=== PATIENT | male | born 1935 | race Caucasian/White ===

== ENCOUNTER 2021-08-28 18:23 | Inpatient (IN) ==
[2021-08-29] MEDS ORDERED: Ipratropium 1 PUFF INHALER IH PRN (13:13)
[2021-08-29] MEDS: *HR* OxyCODONE/APAP 5/325 TABLET PO PRN (13:57)
[2021-08-29] MEDS ORDERED: Gabapentin 300 MG CAPSULE PO SCH (15:00)
[2021-08-29] MEDS: traZODone 50 MG TABLET PO SCH (19:51)
[2021-08-29] MEDS: Gabapentin 300 MG CAPSULE PO SCH (19:51)
[2021-08-29] MEDS: Doxycycline 100 MG CAPSULE PO SCH (19:51)
[2021-08-29] MEDS: Budesonide/Formoterol 160/4.5 1 PUFF INH IH SCH (20:37)
[2021-08-30] MEDS: *HR* OxyCODONE/APAP 5/325 TABLET PO PRN ×3 (00:10→16:57)
[2021-08-30 05:56] LABS: Basophils # 0.1 K/mcL (0.0-0.2); Basophils % 0.8 %; Eosinophils # 0.6 K/mcL (0.0-0.6); Eosinophils % 4.4 %; Hematocrit 31.4 % (37.5-50.1); Hemoglobin 10.7 g/dL (12.9-16.9); Immature Granulocytes % 5.3 % (0-4); Lymphocytes # 1.7 K/mcL (0.6-4.6); Lymphocytes % 12.8 %; Mean Corpuscular HGB Conc 34.1 g/dL (31.6-35.5); Mean Corpuscular Hemoglobin 31.5 pg (28.0-33.3); Mean Corpuscular Volume 92.4 fL (83.0-100.0); Mean Platelet Volume 10.9 fL (9.4-12.4); Monocytes # 1.6 K/mcL (0.0-1.3); Monocytes % 11.9 %; Neutrophils # 8.7 K/mcL (1.6-8.9); Platelet Count 206 K/mcL (140-400); Segmented Neutrophils % 64.8 %; White Blood Count 13.4 K/mcL (4.3-11.1)
[2021-08-30] MEDS: *HR* Enoxaparin 40 MG/0.4 ML SYRINGE SQ SCH (06:16)
[2021-08-30] MEDS: Budesonide/Formoterol 160/4.5 1 PUFF INH IH SCH ×2 (06:34→20:06)
[2021-08-30 06:53] LABS: BUN/Creatinine Ratio 21 (6-26); Blood Urea Nitrogen 24 mg/dL (8-23); Calcium 8.2 mg/dL (8.6-10.3); Carbon Dioxide 27 mEq/L (23-29); Chloride 104 mEq/L (98-107); Glucose 99 mg/dL (70-105); Osmolality,Calculated 286 (280-300); Potassium 4.2 mEq/L (3.5-5.1); Sodium 136 mEq/L (136-145); eGFR For African Americans > 60 (> 60); eGFR For Non-African Americans 59 (> 60)
[2021-08-30] MEDS: Nicotine 14 MG PATCH.TD24 TD SCH (08:10)
[2021-08-30] MEDS: amLODIPine 5 MG TABLET PO SCH (08:11)
[2021-08-30] MEDS: predniSONE 20 MG TABLET PO SCH (08:11)
[2021-08-30] MEDS: Gabapentin 300 MG CAPSULE PO SCH ×3 (08:12→20:03)
[2021-08-30] MEDS: Furosemide 40 MG TABLET PO SCH (08:12)
[2021-08-30] MEDS: Doxycycline 100 MG CAPSULE PO SCH ×2 (08:12→20:03)
[2021-08-30] MEDS: Aspirin Enteric Coated 81 MG Tablet PO SCH (08:13)
[2021-08-30] MEDS: Sennosides/Docusate Sodium TABLET PO PRN (20:03)
[2021-08-30] MEDS: traZODone 50 MG TABLET PO SCH (20:03)
[2021-08-31] MEDS: *HR* OxyCODONE/APAP 5/325 TABLET PO PRN ×3 (04:36→22:19)
[2021-08-31] MEDS: *HR* Enoxaparin 40 MG/0.4 ML SYRINGE SQ SCH (04:37)
[2021-08-31] MEDS: Budesonide/Formoterol 160/4.5 1 PUFF INH IH SCH ×2 (08:00→21:33)
[2021-08-31] MEDS: Nicotine 14 MG PATCH.TD24 TD SCH (09:13)
[2021-08-31] MEDS: Aspirin Enteric Coated 81 MG Tablet PO SCH (09:14)
[2021-08-31] MEDS: Doxycycline 100 MG CAPSULE PO SCH ×2 (09:15→20:16)
[2021-08-31] MEDS: Furosemide 40 MG TABLET PO SCH (09:15)
[2021-08-31] MEDS: predniSONE 20 MG TABLET PO SCH (09:15)
[2021-08-31] MEDS: amLODIPine 5 MG TABLET PO SCH (09:15)
[2021-08-31] MEDS: Gabapentin 300 MG CAPSULE PO SCH ×3 (09:15→20:16)
[2021-08-31] MEDS: traZODone 50 MG TABLET PO SCH (20:16)
[2021-09-01] MEDS: *HR* Enoxaparin 40 MG/0.4 ML SYRINGE SQ SCH (05:34)
[2021-09-01] MEDS: Benzonatate 100 MG CAPSULE PO PRN (05:41)
[2021-09-01] MEDS: Sennosides/Docusate Sodium TABLET PO PRN ×2 (05:41→20:13)
[2021-09-01 06:07] LABS: Hematocrit 30.8 % (37.5-50.1); Hemoglobin 10.3 g/dL (12.9-16.9); Mean Corpuscular HGB Conc 33.4 g/dL (31.6-35.5); Mean Corpuscular Hemoglobin 30.8 pg (28.0-33.3); Mean Corpuscular Volume 92.2 fL (83.0-100.0); Mean Platelet Volume 11.5 fL (9.4-12.4); Platelet Count 249 K/mcL (140-400); Red Blood Count 3.34 M/mcL (4.19-5.50); Red Cell Distribution Width 13.1 % (11.5-14.5); White Blood Count 16.2 K/mcL (4.3-11.1)
[2021-09-01 06:23] LABS: Alanine Aminotransferase 17 Units/L (7-52); Albumin 2.9 g/dL (3.5-5.7); Albumin/Globulin Ratio 1.1 (1.1-2.2); Alkaline Phosphatase 63 Units/L (34-104); Aspartate Amino Transferase 9 Units/L (13-39); BUN/Creatinine Ratio 25 (6-26); Bilirubin,Total 0.3 mg/dL (0.3-1.0); Blood Urea Nitrogen 29 mg/dL (8-23); Calcium 8.2 mg/dL (8.6-10.3); Carbon Dioxide 27 mEq/L (23-29); Chloride 104 mEq/L (98-107); Globulin 2.6 g/dL (2.4-3.5); Glucose 99 mg/dL (70-105); Magnesium 2.2 mg/dL (1.6-2.6); Osmolality,Calculated 290 (280-300); Sodium 137 mEq/L (136-145); Total Protein 5.5 g/dL (6.4-8.9); eGFR For African Americans > 60 (> 60); eGFR For Non-African Americans 60 (> 60)
[2021-09-01] MEDS: Budesonide/Formoterol 160/4.5 1 PUFF INH IH SCH ×2 (07:26→22:25)
[2021-09-01] MEDS: Aspirin Enteric Coated 81 MG Tablet PO SCH (08:17)
[2021-09-01] MEDS: *HR* OxyCODONE/APAP 5/325 TABLET PO PRN ×3 (08:17→21:56)
[2021-09-01] MEDS: Gabapentin 300 MG CAPSULE PO SCH ×3 (08:17→20:12)
[2021-09-01] MEDS: amLODIPine 5 MG TABLET PO SCH (08:17)
[2021-09-01] MEDS: Doxycycline 100 MG CAPSULE PO SCH ×2 (08:18→20:12)
[2021-09-01] MEDS: predniSONE 20 MG TABLET PO SCH (08:18)
[2021-09-01] MEDS: Furosemide 40 MG TABLET PO SCH (08:18)
[2021-09-01] MEDS: Nicotine 14 MG PATCH.TD24 TD SCH (08:19)
[2021-09-01] MEDS: polyethylene glycoL 3350 17 GM POWD.PACK PO PRN (08:20)
[2021-09-01] MEDS ORDERED: *HR* OxyCODONE/APAP 5/325 TABLET PO PRN (14:51)
[2021-09-01] MEDS: traZODone 50 MG TABLET PO SCH (20:13)
[2021-09-02] MEDS: *HR* Enoxaparin 40 MG/0.4 ML SYRINGE SQ SCH (05:04)
[2021-09-02] MEDS: *HR* OxyCODONE/APAP 5/325 TABLET PO PRN ×3 (05:05→18:34)
[2021-09-02 06:26] LABS: Basophils % 0.2 %; Eosinophils % 0.3 %; Hemoglobin 9.9 g/dL (12.9-16.9); Immature Granulocytes % 1.6 % (0-4); Lymphocytes # 1.8 K/mcL (0.6-4.6); Mean Corpuscular Hemoglobin 30.6 pg (28.0-33.3); Mean Corpuscular Volume 92.6 fL (83.0-100.0); Mean Platelet Volume 11.5 fL (9.4-12.4); Monocytes # 1.5 K/mcL (0.0-1.3); Monocytes % 9.9 %; Neutrophils # 11.1 K/mcL (1.6-8.9); Platelet Count 242 K/mcL (140-400); Red Blood Count 3.24 M/mcL (4.19-5.50); Red Cell Distribution Width 13.2 % (11.5-14.5); White Blood Count 14.6 K/mcL (4.3-11.1)
[2021-09-02 07:12] LABS: BUN/Creatinine Ratio 26 (6-26); Blood Urea Nitrogen 33 mg/dL (8-23); Calcium 7.9 mg/dL (8.6-10.3); Carbon Dioxide 28 mEq/L (23-29); Chloride 102 mEq/L (98-107); Glucose 96 mg/dL (70-105); Osmolality,Calculated 285 (280-300); Potassium 4.1 mEq/L (3.5-5.1); Sodium 134 mEq/L (136-145); Uric Acid 5.7 mg/dL (2.3-7.6); eGFR For African Americans > 60 (> 60); eGFR For Non-African Americans 53 (> 60)
[2021-09-02] MEDS: Budesonide/Formoterol 160/4.5 1 PUFF INH IH SCH ×2 (07:47→22:00)
[2021-09-02] MEDS: polyethylene glycoL 3350 17 GM POWD.PACK PO PRN (08:14)
[2021-09-02] MEDS: Nicotine 14 MG PATCH.TD24 TD SCH (08:14)
[2021-09-02] MEDS: Sennosides/Docusate Sodium TABLET PO PRN ×2 (08:16→20:25)
[2021-09-02] MEDS: Gabapentin 300 MG CAPSULE PO SCH ×3 (08:16→20:25)
[2021-09-02] MEDS: Doxycycline 100 MG CAPSULE PO SCH ×2 (08:16→20:25)
[2021-09-02] MEDS: Aspirin Enteric Coated 81 MG Tablet PO SCH (08:17)
[2021-09-02] MEDS: Furosemide 40 MG TABLET PO SCH (08:17)
[2021-09-02] MEDS: Benzonatate 100 MG CAPSULE PO PRN ×2 (08:17→18:35)
[2021-09-02] MEDS: amLODIPine 5 MG TABLET PO SCH (08:17)
[2021-09-02] MEDS: predniSONE 20 MG TABLET PO SCH (13:07)
[2021-09-02] MEDS: traZODone 50 MG TABLET PO SCH (20:25)
[2021-09-03] MEDS: *HR* OxyCODONE/APAP 5/325 TABLET PO PRN ×4 (01:41→21:04)
[2021-09-03] MEDS: *HR* Enoxaparin 40 MG/0.4 ML SYRINGE SQ SCH (06:08)
[2021-09-03] MEDS: Budesonide/Formoterol 160/4.5 1 PUFF INH IH SCH ×2 (07:51→21:39)
[2021-09-03] MEDS: Furosemide 40 MG TABLET PO SCH (08:04)
[2021-09-03] MEDS: amLODIPine 5 MG TABLET PO SCH (08:04)
[2021-09-03] MEDS: Gabapentin 300 MG CAPSULE PO SCH ×3 (08:04→21:04)
[2021-09-03] MEDS: Doxycycline 100 MG CAPSULE PO SCH (08:05)
[2021-09-03] MEDS: Nicotine 14 MG PATCH.TD24 TD SCH (08:05)
[2021-09-03] MEDS: Aspirin Enteric Coated 81 MG Tablet PO SCH (08:05)
[2021-09-03] MEDS: predniSONE 20 MG TABLET PO SCH (08:05)
[2021-09-03] MEDS: Sennosides/Docusate Sodium TABLET PO PRN (08:19)
[2021-09-03] MEDS: polyethylene glycoL 3350 17 GM POWD.PACK PO PRN (08:19)
[2021-09-03] MEDS: traZODone 50 MG TABLET PO SCH (21:04)
[2021-09-04] MEDS: *HR* OxyCODONE/APAP 5/325 TABLET PO PRN ×4 (02:51→23:41)
[2021-09-04] MEDS: *HR* Enoxaparin 40 MG/0.4 ML SYRINGE SQ SCH (06:11)
[2021-09-04] MEDS: Aspirin Enteric Coated 81 MG Tablet PO SCH (08:13)
[2021-09-04] MEDS: Nicotine 14 MG PATCH.TD24 TD SCH (08:13)
[2021-09-04] MEDS: amLODIPine 5 MG TABLET PO SCH (08:13)
[2021-09-04] MEDS: Gabapentin 300 MG CAPSULE PO SCH ×3 (08:13→20:25)
[2021-09-04] MEDS: Furosemide 40 MG TABLET PO SCH (08:13)
[2021-09-04] MEDS: predniSONE 20 MG TABLET PO SCH (08:13)
[2021-09-04] MEDS: Budesonide/Formoterol 160/4.5 1 PUFF INH IH SCH ×2 (08:22→21:47)
[2021-09-04] MEDS: Menthol 1 EACH LOZENGE PO PRN (17:23)
[2021-09-04] MEDS: traZODone 50 MG TABLET PO SCH (20:25)
[2021-09-05] MEDS: *HR* OxyCODONE/APAP 5/325 TABLET PO PRN ×3 (06:29→22:55)
[2021-09-05] MEDS: *HR* Enoxaparin 40 MG/0.4 ML SYRINGE SQ SCH (06:30)
[2021-09-05] MEDS: amLODIPine 5 MG TABLET PO SCH (06:36)
[2021-09-05] MEDS: predniSONE 20 MG TABLET PO SCH (07:45)
[2021-09-05] MEDS: Furosemide 40 MG TABLET PO SCH (07:45)
[2021-09-05] MEDS: Aspirin Enteric Coated 81 MG Tablet PO SCH (07:45)
[2021-09-05] MEDS: Gabapentin 300 MG CAPSULE PO SCH ×3 (07:46→20:05)
[2021-09-05] MEDS: Nicotine 14 MG PATCH.TD24 TD SCH (07:46)
[2021-09-05] MEDS: Budesonide/Formoterol 160/4.5 1 PUFF INH IH SCH ×2 (08:26→19:44)
[2021-09-05] MEDS: Menthol 1 EACH LOZENGE PO PRN (15:19)
[2021-09-05] MEDS: levoFLOXacin 500 MG TABLET PO SCH (16:35)
[2021-09-05] MEDS: traZODone 50 MG TABLET PO SCH (20:05)
[2021-09-06] MEDS: *HR* Enoxaparin 40 MG/0.4 ML SYRINGE SQ SCH (04:49)
[2021-09-06] MEDS: *HR* OxyCODONE/APAP 5/325 TABLET PO PRN ×2 (04:50→13:30)
[2021-09-06 07:01] VITALS: TEMP 97.4
[2021-09-06] MEDS: amLODIPine 5 MG TABLET PO SCH (08:44)
[2021-09-06] MEDS: Nicotine 14 MG PATCH.TD24 TD SCH (08:44)
[2021-09-06] MEDS: levoFLOXacin 500 MG TABLET PO SCH (08:44)
[2021-09-06] MEDS: Aspirin Enteric Coated 81 MG Tablet PO SCH (08:44)
[2021-09-06] MEDS: Gabapentin 300 MG CAPSULE PO SCH ×2 (08:44→16:12)
[2021-09-06] MEDS: Furosemide 40 MG TABLET PO SCH (08:45)
[2021-09-06] MEDS: Magic Mouthwash 10 ML UD Cup PO SCH ×2 (08:45→12:50)
[2021-09-06] MEDS: predniSONE 20 MG TABLET PO SCH (08:45)
[2021-09-06] MEDS ORDERED: levoFLOXacin 500 MG TABLET PO SCH (09:00)
[2021-09-06] MEDS: Budesonide/Formoterol 160/4.5 1 PUFF INH IH SCH (10:27)
[2021-09-06 10:32] VITALS: RESP 19
[2021-09-06 13:38] VITALS: BP 130/53; PULSE 69; O2SAT 97
[2021-09-11] MEDS ORDERED: levoFLOXacin 500 MG TABLET PO ONE (15:23)
== END 2021-09-06 17:35 | disposition home or self-care (01) | DRG 950 ==
LOC: INPGRE 08-29 12:29
PROVIDERS: ADMIT Family Medicine; ATTEND Family Medicine

== ENCOUNTER 2022-01-09 11:11 | Inpatient (IN) ==
[2022-01-09] MEDS: *HR* OxyCODONE/APAP 5/325 TABLET PO SCH ×2 (17:12→23:10)
[2022-01-09] MEDS: traZODone 50 MG TABLET PO SCH (21:26)
[2022-01-09] MEDS: Magnesium Oxide 400 MG TABLET PO SCH (21:26)
[2022-01-09] MEDS: Gabapentin 300 MG CAPSULE PO SCH (21:26)
[2022-01-10 05:43] LABS: Basophils % 0.4 %; Eosinophils # 0.3 K/mcL (0.0-0.6); Eosinophils % 2.9 %; Hematocrit 28.9 % (37.5-50.1); Hemoglobin 9.5 g/dL (12.9-16.9); Immature Granulocytes % 0.8 % (0-4); Lymphocytes # 1.7 K/mcL (0.6-4.6); Mean Corpuscular HGB Conc 32.9 g/dL (31.6-35.5); Mean Corpuscular Hemoglobin 30.2 pg (28.0-33.3); Mean Corpuscular Volume 91.7 fL (83.0-100.0); Mean Platelet Volume 10.9 fL (9.4-12.4); Monocytes # 1.3 K/mcL (0.0-1.3); Monocytes % 13.6 %; Neutrophils # 5.9 K/mcL (1.6-8.9); Platelet Count 285 K/mcL (140-400); Red Blood Count 3.15 M/mcL (4.19-5.50); Red Cell Distribution Width 13.3 % (11.5-14.5); Segmented Neutrophils % 64.3 %; White Blood Count 9.2 K/mcL (4.3-11.1)
[2022-01-10] MEDS: *HR* OxyCODONE/APAP 5/325 TABLET PO SCH ×3 (06:52→22:44)
[2022-01-10 07:08] LABS: BUN/Creatinine Ratio 22 (6-26); Blood Urea Nitrogen 29 mg/dL (8-23); Calcium 9.1 mg/dL (8.6-10.3); Carbon Dioxide 32 mEq/L (23-29); Chloride 102 mEq/L (98-107); Glucose 105 mg/dL (70-105); Osmolality,Calculated 292 (280-300); Potassium 5.2 mEq/L (3.5-5.1); Sodium 138 mEq/L (136-145); eGFR For African Americans > 60 (> 60); eGFR For Non-African Americans 52 (> 60)
[2022-01-10] MEDS: Gabapentin 300 MG CAPSULE PO SCH ×3 (08:19→20:44)
[2022-01-10] MEDS: Ascorbic Acid 500 MG TABLET PO SCH (08:19)
[2022-01-10] MEDS: Aspirin Enteric Coated 81 MG Tablet PO SCH (08:19)
[2022-01-10] MEDS: Magnesium Oxide 400 MG TABLET PO SCH ×3 (08:20→20:45)
[2022-01-10] MEDS: amLODIPine 5 MG TABLET PO SCH (08:20)
[2022-01-10] MEDS: traZODone 50 MG TABLET PO SCH (20:44)
[2022-01-10] MEDS: *HR* Heparin 5,000 UNIT/ML VIAL SQ SCH (22:43)
[2022-01-11 05:04] LABS: Basophils # 0.1 K/mcL (0.0-0.2); Basophils % 0.8 %; Eosinophils # 0.3 K/mcL (0.0-0.6); Hematocrit 28.9 % (37.5-50.1); Hemoglobin 9.5 g/dL (12.9-16.9); Immature Granulocytes % 1.1 % (0-4); Lymphocytes # 1.5 K/mcL (0.6-4.6); Lymphocytes % 19.2 %; Mean Corpuscular HGB Conc 32.9 g/dL (31.6-35.5); Mean Corpuscular Hemoglobin 30.3 pg (28.0-33.3); Mean Platelet Volume 10.2 fL (9.4-12.4); Monocytes % 12.7 %; Neutrophils # 4.9 K/mcL (1.6-8.9); Platelet Count 297 K/mcL (140-400); Red Blood Count 3.14 M/mcL (4.19-5.50); Red Cell Distribution Width 13.2 % (11.5-14.5); Segmented Neutrophils % 62.2 %; White Blood Count 7.9 K/mcL (4.3-11.1)
[2022-01-11 05:17] LABS: BUN/Creatinine Ratio 23 (6-26); Blood Urea Nitrogen 30 mg/dL (8-23); Calcium 9.2 mg/dL (8.6-10.3); Carbon Dioxide 32 mEq/L (23-29); Chloride 102 mEq/L (98-107); Glucose 108 mg/dL (70-105); Osmolality,Calculated 291 (280-300); Potassium 4.9 mEq/L (3.5-5.1); Sodium 137 mEq/L (136-145); eGFR For African Americans > 60 (> 60); eGFR For Non-African Americans 53 (> 60)
[2022-01-11] MEDS: *HR* OxyCODONE/APAP 5/325 TABLET PO SCH ×2 (06:50→16:09)
[2022-01-11] MEDS: *HR* Heparin 5,000 UNIT/ML VIAL SQ SCH ×3 (06:51→20:53)
[2022-01-11] MEDS: Aspirin Enteric Coated 81 MG Tablet PO SCH (07:53)
[2022-01-11] MEDS: Ascorbic Acid 500 MG TABLET PO SCH (07:53)
[2022-01-11] MEDS: amLODIPine 5 MG TABLET PO SCH (07:53)
[2022-01-11] MEDS: Magnesium Oxide 400 MG TABLET PO SCH ×3 (07:53→20:54)
[2022-01-11] MEDS: Gabapentin 300 MG CAPSULE PO SCH ×3 (07:53→20:54)
[2022-01-11] MEDS: traZODone 50 MG TABLET PO SCH (20:54)
[2022-01-12] MEDS: *HR* OxyCODONE/APAP 5/325 TABLET PO SCH ×4 (00:25→23:07)
[2022-01-12] MEDS: *HR* Heparin 5,000 UNIT/ML VIAL SQ SCH ×3 (06:36→23:07)
[2022-01-12] MEDS: Aspirin Enteric Coated 81 MG Tablet PO SCH (08:10)
[2022-01-12] MEDS: Ascorbic Acid 500 MG TABLET PO SCH (08:11)
[2022-01-12] MEDS: amLODIPine 5 MG TABLET PO SCH (08:11)
[2022-01-12] MEDS: Gabapentin 300 MG CAPSULE PO SCH ×3 (08:11→20:13)
[2022-01-12] MEDS: Magnesium Oxide 400 MG TABLET PO SCH ×3 (08:12→20:13)
[2022-01-12] MEDS ORDERED: *HR* HYDROcodone/Acet 5/325 mg TABLET PO PRN (13:44)
[2022-01-12] MEDS: Ibuprofen 600 MG TABLET PO PRN (20:13)
[2022-01-12] MEDS: traZODone 50 MG TABLET PO SCH (20:14)
[2022-01-13 04:41] LABS: Hematocrit 27.8 % (37.5-50.1); Hemoglobin 9.3 g/dL (12.9-16.9); Mean Corpuscular HGB Conc 33.5 g/dL (31.6-35.5); Mean Corpuscular Hemoglobin 30.6 pg (28.0-33.3); Mean Corpuscular Volume 91.4 fL (83.0-100.0); Mean Platelet Volume 9.8 fL (9.4-12.4); Platelet Count 303 K/mcL (140-400); Red Blood Count 3.04 M/mcL (4.19-5.50); Red Cell Distribution Width 13.2 % (11.5-14.5); White Blood Count 8.2 K/mcL (4.3-11.1)
[2022-01-13 04:59] LABS: Alanine Aminotransferase 12 Units/L (7-52); Albumin 3.1 g/dL (3.5-5.7); Albumin/Globulin Ratio 1.3 (1.1-2.2); Alkaline Phosphatase 60 Units/L (34-104); Aspartate Amino Transferase 10 Units/L (13-39); BUN/Creatinine Ratio 21 (6-26); Bilirubin,Total 0.3 mg/dL (0.3-1.0); Blood Urea Nitrogen 33 mg/dL (8-23); Calcium 8.7 mg/dL (8.6-10.3); Carbon Dioxide 29 mEq/L (23-29); Chloride 101 mEq/L (98-107); Globulin 2.4 g/dL (2.4-3.5); Glucose 100 mg/dL (70-105); Magnesium 2.5 mg/dL (1.6-2.6); Osmolality,Calculated 287 (280-300); Potassium 5.1 mEq/L (3.5-5.1); Sodium 135 mEq/L (136-145); Total Protein 5.5 g/dL (6.4-8.9); eGFR For African Americans 50 (> 60); eGFR For Non-African Americans 42 (> 60)
[2022-01-13] MEDS: *HR* Heparin 5,000 UNIT/ML VIAL SQ SCH ×3 (05:34→22:53)
[2022-01-13] MEDS: *HR* OxyCODONE/APAP 5/325 TABLET PO SCH ×3 (07:56→22:54)
[2022-01-13] MEDS: Aspirin Enteric Coated 81 MG Tablet PO SCH (07:56)
[2022-01-13] MEDS: Magnesium Oxide 400 MG TABLET PO SCH ×3 (07:56→20:00)
[2022-01-13] MEDS: Gabapentin 300 MG CAPSULE PO SCH ×3 (07:56→20:00)
[2022-01-13] MEDS: amLODIPine 5 MG TABLET PO SCH (07:57)
[2022-01-13] MEDS: Ascorbic Acid 500 MG TABLET PO SCH (07:57)
[2022-01-13] MEDS: Ibuprofen 600 MG TABLET PO PRN (19:59)
[2022-01-13] MEDS: traZODone 50 MG TABLET PO SCH (20:00)
[2022-01-13] MEDS: tiZANidine 4 MG TABLET PO PRN (20:00)
[2022-01-14] MEDS: *HR* Heparin 5,000 UNIT/ML VIAL SQ SCH ×3 (05:58→22:51)
[2022-01-14] MEDS: Gabapentin 300 MG CAPSULE PO SCH ×3 (07:44→19:55)
[2022-01-14] MEDS: *HR* OxyCODONE/APAP 5/325 TABLET PO SCH ×3 (07:45→22:51)
[2022-01-14] MEDS: Aspirin Enteric Coated 81 MG Tablet PO SCH (07:46)
[2022-01-14] MEDS: Magnesium Oxide 400 MG TABLET PO SCH ×3 (07:47→19:56)
[2022-01-14] MEDS: Ascorbic Acid 500 MG TABLET PO SCH (07:48)
[2022-01-14] MEDS: amLODIPine 5 MG TABLET PO SCH (07:48)
[2022-01-14] MEDS: tiZANidine 4 MG TABLET PO PRN ×3 (07:50→22:51)
[2022-01-14] MEDS: Ibuprofen 600 MG TABLET PO PRN (14:11)
[2022-01-14] MEDS: traZODone 50 MG TABLET PO SCH (19:56)
[2022-01-15] MEDS: *HR* Heparin 5,000 UNIT/ML VIAL SQ SCH ×3 (04:23→23:27)
[2022-01-15] MEDS: Aspirin Enteric Coated 81 MG Tablet PO SCH (07:42)
[2022-01-15] MEDS: amLODIPine 5 MG TABLET PO SCH (07:42)
[2022-01-15] MEDS: Gabapentin 300 MG CAPSULE PO SCH ×3 (07:42→20:01)
[2022-01-15] MEDS: Ascorbic Acid 500 MG TABLET PO SCH (07:43)
[2022-01-15] MEDS: *HR* OxyCODONE/APAP 5/325 TABLET PO SCH ×3 (07:43→23:28)
[2022-01-15] MEDS: Magnesium Oxide 400 MG TABLET PO SCH ×3 (07:43→20:01)
[2022-01-15] MEDS: Doxycycline 100 MG CAPSULE PO SCH ×2 (15:11→20:01)
[2022-01-15] MEDS: traZODone 50 MG TABLET PO SCH (20:00)
[2022-01-16 04:47] LABS: Hematocrit 28.2 % (37.5-50.1); Hemoglobin 9.2 g/dL (12.9-16.9); Mean Corpuscular HGB Conc 32.6 g/dL (31.6-35.5); Mean Corpuscular Hemoglobin 30.3 pg (28.0-33.3); Mean Corpuscular Volume 92.8 fL (83.0-100.0); Mean Platelet Volume 9.7 fL (9.4-12.4); Platelet Count 311 K/mcL (140-400); Red Blood Count 3.04 M/mcL (4.19-5.50); Red Cell Distribution Width 13.4 % (11.5-14.5); White Blood Count 7.6 K/mcL (4.3-11.1)
[2022-01-16 05:03] LABS: Calcium 8.8 mg/dL (8.6-10.3); Potassium 4.5 mEq/L (3.5-5.1)
[2022-01-16] MEDS: *HR* Heparin 5,000 UNIT/ML VIAL SQ SCH ×3 (06:38→20:48)
[2022-01-16] MEDS: Magnesium Oxide 400 MG TABLET PO SCH ×3 (08:02→20:47)
[2022-01-16] MEDS: Ascorbic Acid 500 MG TABLET PO SCH (08:02)
[2022-01-16] MEDS: Doxycycline 100 MG CAPSULE PO SCH ×2 (08:02→20:47)
[2022-01-16] MEDS: Aspirin Enteric Coated 81 MG Tablet PO SCH (08:02)
[2022-01-16] MEDS: Gabapentin 300 MG CAPSULE PO SCH ×3 (08:02→20:47)
[2022-01-16] MEDS: *HR* OxyCODONE/APAP 5/325 TABLET PO SCH ×2 (08:02→16:35)
[2022-01-16] MEDS: amLODIPine 5 MG TABLET PO SCH (08:03)
[2022-01-16] MEDS: traZODone 50 MG TABLET PO SCH (20:47)
[2022-01-17] MEDS: *HR* OxyCODONE/APAP 5/325 TABLET PO SCH ×3 (00:03→14:44)
[2022-01-17] MEDS: *HR* Heparin 5,000 UNIT/ML VIAL SQ SCH ×2 (05:56→14:44)
[2022-01-17 06:48] VITALS: BP 146/64; PULSE 68; TEMP 98.1
[2022-01-17] MEDS: Gabapentin 300 MG CAPSULE PO SCH ×2 (08:50→14:45)
[2022-01-17] MEDS: Aspirin Enteric Coated 81 MG Tablet PO SCH (08:50)
[2022-01-17] MEDS: amLODIPine 5 MG TABLET PO SCH (08:51)
[2022-01-17] MEDS: Doxycycline 100 MG CAPSULE PO SCH (08:51)
[2022-01-17] MEDS: Magnesium Oxide 400 MG TABLET PO SCH ×2 (08:51→14:44)
[2022-01-17] MEDS: Ascorbic Acid 500 MG TABLET PO SCH (08:51)
[2022-01-17 10:19] VITALS: RESP 26; O2SAT 97
== END 2022-01-17 16:20 | disposition home health service (06) | DRG 301 ==
LOC: SUATTDRO 14:41 → INPGRE 14:41
PROVIDERS: ADMIT Internal Medicine; ATTEND Family Medicine